=== PATIENT | male | born 1960 | race Native Hawaiian/Other Pacific Islander ===

== ENCOUNTER 2017-09-04 07:40 | Day surgery (SDC) | payer MEDICARE ==
--- NOTE | 2017-09-04 09:27 | CP.SDSHP ---
Same Day Surgery H & P - History Proposed Procedure: colonoscopy Pre-Op Diagnosis: rectal bleeding - Previous Medical/Surgical History Cardiac: Hypertension, ASHD/CAD Endocrine/Metabolic: Diabetes - Allergies Allergies: Allergies keo Allergy (Severe, Verified 09/04/17 08:28) SHORTNESS OF BREATH Iodinated Contrast- Oral and IV Dye Allergy (Severe, Verified 09/04/17 08:28) SHORTNESS OF BREATH Penicillins Allergy (Severe, Verified 09/04/17 08:28) SHORTNESS OF BREATH Anesthetics - Amide Type Allergy (Intermediate, Verified 09/04/17 08:28) VOMITING Anesthetics - Shawna Type- Parabens [Anesthetics - Shawna Type] Allergy ( Intermediate, Verified 09/04/17 08:28) VOMITING apple Allergy (Intermediate, Verified 09/04/17 08:28) SHORTNESS OF BREATH strawberry Allergy (Intermediate, Verified 09/04/17 08:28) SHORTNESS OF BREATH - Physical Exam General Appearance: NAD Vital Signs: Vital Signs 09/04/17 08:44 Temperature 97 F L Pulse Rate 90 Respiratory 20 Rate Blood Pressure 139/91 H O2 Sat by Pulse 97 Oximetry Mental Status: Alert & Oriented x3 Neuro: WNL Heart: WNL Lungs: WNL GI: WNL - {Optional Preform as Required} Abdomen: WNL - Impression Pt. Evaluated Today:Candidate for Anesthesia & Procedure: Yes - Date & Time Date: 09/04/17 Time: 09:27 Short Stay Discharge - Short Stay Discharge Admitting Diagnosis/Reason for Visit: MELENA Disposition: HOME/ ROUTINE
[2017-09-04] MEDS ORDERED: Midazolam 2 MG/2 ML VIAL ONE (09:28)
[2017-09-04] MEDS ORDERED: Propofol 10 mg/ml Inj (20 ML) ONE (09:28)
[2017-09-04 10:21] VITALS: TEMP 97.3
[2017-09-04 10:22] VITALS: RESP 20
[2017-09-04 10:56] VITALS: BP 128/80; PULSE 88; O2SAT 100
== END 2017-09-04 10:57 | disposition home or self-care (01) ==
LOC: C.ENDO 07:40
PROVIDERS: ATTEND Internal Medicine Gastroenterology
DX: D12.3 Benign neoplasm of transverse colon (principal); K92.1 Melena; K57.30 Diverticulosis of large intestine without perforation or abscess without bleeding; K64.8 Other hemorrhoids
CPT/HCPCS: 45385; 82948; 88305; J2704; J3010